=== PATIENT | male | born 1960 | race Caucasian/White ===

== ENCOUNTER 2016-03-15 22:56 | Emergency (ER) | payer MEDICARE, BC ==
[2016-03-15] MEDS ORDERED: ACETAMINOPHEN 325 MG TABLET PO ONE (23:18)
[2016-03-15 23:42] LABS: ABSOLUTE BASOPHILS # (AUTO) 0.1 10^3/uL (0.0-0.2); ABSOLUTE EOSINOPHILS # (AUTO) 0.2 10^3/uL (0.0-0.6); ABSOLUTE LYMPHOCYTES (AUTO) 1.2 10^3/uL (0.5-4.7); ABSOLUTE MONOCYTES (AUTO) 0.7 10^3/uL (0.1-1.4); ABSOLUTE NEUT (AUTO) 5.3 10^3/uL (1.7-8.2); BASOPHILS % (AUTO) 0.9 % (0-2); EOSINOPHILS % (AUTO) 2.1 % (0-6); HEMATOCRIT 45.5 % (37.9-51.0); HEMOGLOBIN 15.2 g/dL (13.5-17.0); HGB HCT DIFFERENCE 0.1; LYMPHOCYTES % (AUTO) 16.1 % (13-45); MEAN CORPUSCULAR HEMOGLOBIN 31.6 pg (27.0-33.4); MEAN CORPUSCULAR HGB CONC 33.4 g/dL (32.0-36.0); MEAN CORPUSCULAR VOLUME 95 fl (80-97); MONOCYTES % (AUTO) 9.1 % (3-13); RED BLOOD COUNT 4.82 10^6/uL (4.35-5.55); RED CELL DISTRIBUTION WIDTH 14.3 % (11.5-14.0); SEGMENTED NEUTROPHILS % (AUTO) 71.8 % (42-78); WHITE BLOOD COUNT 7.4 10^3/uL (4.0-10.5)
[2016-03-15 23:59] LABS: ALANINE AMINOTRANSFERASE 155 U/L (21-72); ALBUMIN 4.5 g/dL (3.5-5.0); ALKALINE PHOSPHATASE 108 U/L (38-126); ANION GAP 14 (5-19); ASPARTATE AMINO TRANSFERASE 201 U/L (17-59); BILIRUBIN,TOTAL 1.8 mg/dL (0.2-1.3); BLOOD UREA NITROGEN 29 mg/dL (7-20); CALCIUM 9.9 mg/dL (8.4-10.2); CARBON DIOXIDE 28 mmol/L (22-30); CHLORIDE 102 mmol/L (98-107); CREATINE KINASE 56 U/L (55-170); CREATININE RESULT 1.75 mg/dL (0.52-1.25); GLUCOSE 127 mg/dL (75-110); POTASSIUM 4.7 mmol/L (3.6-5.0); SODIUM 143.6 mmol/L (137-145); TOTAL PROTEIN 7.6 g/dL (6.3-8.2)
[2016-03-16 00:10] LABS: CREATINE KINASE MB 1.11 ng/mL (<4.55)
[2016-03-16 00:17] LABS: TROPONIN I < 0.012 ng/mL
[2016-03-16] MEDS ORDERED: ONDANSETRON HCL INJ/PF 4 MG/2 ML SDV IV ONE (01:34)
[2016-03-16] MEDS ORDERED: NORMAL SALINE 1000 ML 1,000 ML IV ONE (01:34)
--- NOTE | 2016-03-16 01:36 | ER Document Report ---
ED GI/ - General Chief Complaint: Abdominal Pain Stated Complaint: abdominal pain Time seen by provider: 01:30 Notes: Patient is a 55-year-old male that comes emergency department with chief complaint of abdominal pain, pain is in his right upper abdomen and started shortly after he ate dinner tonight at 6 PM. Patient states pain was very sharp and seemed to go through to his back. Pain has significantly subsided at this time, patient denies vomiting. Past history of GERD, hypertension, gout, orthopedic surgeries. TRAVEL OUTSIDE OF THE [place] IN LAST 30 DAYS: No - Related Data Allergies/Adverse Reactions: No Known Allergies Allergy (Unverified 03/15/16 23:17) Past Medical History - General Information source: Patient - Social History Smoking Status: Former Smoker Chew tobacco use (# tins/day): No Frequency of alcohol use: None Drug Abuse: None Lives with: Family Family History: Reviewed & Not Pertinent Patient has suicidal ideation: No Patient has homicidal ideation: No Renal/ Medical History: Denies: Hx Peritoneal Dialysis GI Medical History: Reports: Hx Gastroesophageal Reflux Disease Past Surgical History: Reports: Hx Orthopedic Surgery - Immunizations Immunizations up to date: Yes Hx Diphtheria, Pertussis, Tetanus Vaccination: Yes Review of Systems - Review of Systems Constitutional: No symptoms reported EENT: No symptoms reported Cardiovascular: No symptoms reported Respiratory: No symptoms reported Gastrointestinal: See HPI Genitourinary: No symptoms reported Male Genitourinary: No symptoms reported Musculoskeletal: No symptoms reported Skin: No symptoms reported Hematologic/Lymphatic: No symptoms reported Neurological/Psychological: No symptoms reported Physical Exam - Vital signs Vitals: Temp Pulse Resp BP Pulse Ox 97.5 F 89 20 155/83 H 100 03/15/16 23:14 03/15/16 23:14 03/15/16 23:14 03/15/16 23:14 03/15/16 23:14 Interpretation: Normal - General General appearance: Appears well, Alert In distress: None - HEENT Head: Normocephalic, Atraumatic Eyes: Normal Conjunctiva: Normal Extraocular movements intact: Yes Eyelashes: Normal Pupils: PERRL Sinus: Normal Nasal: Normal Mouth/Lips: Normal Mucous membranes: Normal Pharynx: Normal Neck: Normal - Respiratory Respiratory status: No respiratory distress Chest status: Nontender Breath sounds: Normal. No: Decreased air movement, Wheezing Chest palpation: Normal - Cardiovascular Rhythm: Regular. No: Tachycardia Heart sounds: Normal auscultation, S1 appreciated, S2 appreciated Murmur: No - Abdominal Inspection: Normal Distension: No distension Bowel sounds: Normal Tenderness: Tender - Epigastric tenderness, otherwise unremarkable abdomen - Back Back: Normal, Nontender. No: Tender - Extremities General upper extremity: Normal inspection, Nontender, Normal color, Normal ROM , Normal temperature General lower extremity: Normal inspection, Nontender, Normal color, Normal ROM , Normal temperature, Normal weight bearing. No: Toby's sign - Neurological Neuro grossly intact: Yes Cognition: Normal Orientation: AAOx4 [place] Coma Scale Eye Opening: Spontaneous [place] Coma Scale Verbal: Oriented [place] Coma Scale Motor: Obeys Commands [place] Coma Scale Total: 15 Speech: Normal Motor strength normal: LUE, RUE, LLE, RLE Sensory: Normal - Psychological Associated symptoms: Normal affect, Normal mood - Skin Skin Temperature: Warm Skin Moisture: Dry Skin Color: Normal Course - Re-evaluation Re-evalutation: Patient has epigastric pain on palpation. EKG unremarkable, cardiac enzymes negative, patient with no cardiovascular history. Patient not complaining of any chest pain. No shortness of breath. CBC shows no abnormality, chemistry shows elevated creatinine at 1.75, elevated LFTs with AST greater than ALT, bilirubin is elevated at 1.8, however indirect bilirubin is normal and alkaline phosphatase is normal. Ultrasound was performed because of epigastric pain with abnormal labs, shows fatty attrition of the liver, unremarkable gallbladder, no acute findings. Kidney incidentally missing. Lipase not significantly elevated. Epigastric area is only mildly tender. Discussed with Dr. Mccollum per [facility] guidelines. On reevaluation patient stating that he has a burning discomfort and he wants medication, patient given Carafate, Pepcid, Maalox, on reevaluation patient's symptoms are significantly improved and almost completely resolved. 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 Discussed follow-up and return precautions. Patient states understanding and agreement. - Vital Signs Vital signs: Temp Pulse Resp BP Pulse Ox 98.6 F 89 24 H 124/74 97 03/16/16 04:58 03/15/16 23:14 03/16/16 04:49 03/16/16 04:49 03/16/16 04:49 - Laboratory Result Diagrams: 03/15/16 23:28 03/15/16 23:28 Laboratory results interpreted by me: 03/15/16 03/15/16 03/15/16 23:28 23:28 23:28 RDW 14.3 H BUN 29 H Creatinine 1.75 H Est GFR ( Amer) 49 L Est GFR (Non-Af Amer) 41 L Glucose 127 H Total Bilirubin 1.8 H AST 201 H ALT 155 H Lipase 401.7 H Discharge - Discharge Clinical Impression: Abdominal pain Qualifiers: Abdominal location: upper abdomen, unspecified Qualified Code(s): R10.10 - Upper abdominal pain, unspecified Condition: Stable Disposition: HOME, SELF-CARE Additional Instructions: Your liver enzymes were somewhat elevated, your kidney function test is somewhat abnormal, and your ultrasound shows fatty infiltration of the liver. 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 Please follow-up closely with your laboratory values and your primary care for additional management. Your ultrasound does not show any gallbladder abnormality, your symptoms and response to treatment is suggestive of inflammation in your stomach and small intestine. Please take the Carafate and omeprazole as directed daily. Take Tums or Rolaids for pain if needed in addition to your medications, avoid caffeine, alcohol, smoking, spicy food, NSAIDs. Return to emergency department immediately if you develop vomiting with blood, uncontrolled vomiting, black stools, severe abdominal pain, or any other concerning symptoms. Prescriptions: Omeprazole 40 mg PO DAILY #60 capsule. Sucralfanoemi [Carafate 1 gm Tablet] 1 gm PO QID #40 tablet Referrals: DEANNE FOSTER MD [Primary Care Provider] - Follow up in 1 week
[2016-03-16] MEDS ORDERED: SUCRALFATE 1 GM TABLET PO ONE (03:44)
[2016-03-16] MEDS ORDERED: FAMOTIDINE 20 MG TABLET PO ONE (03:44)
[2016-03-16] MEDS ORDERED: MAG HYDROX/AL HYDROX/SIMETH SUSP 30 ML UDCUP PO ONE (03:44)
[2016-03-16 05:01] VITALS: BP 124/74
--- NOTE | 2016-03-16 15:17 | EKG REPORT ---
SEVERITY:- NORMAL ECG - SINUS RHYTHM : Confirmed by: Rosalva Bonner MD 16-Mar-2016 15:16:55
== END 2016-03-16 04:58 | disposition home or self-care (01) ==
LOC: ER 22:56
DX: R10.10 Upper abdominal pain, unspecified (principal); K21.9 Gastro-esophageal reflux disease without esophagitis
CPT/HCPCS: 93005; 99285; 96360; 96374; 36415; 82553; 82550; 83690; 85025; 80053; 84484; 76705; 93010; A9270 ×3; J2405; J7030